=== PATIENT | male | born 1995 | race Caucasian/White ===

== ENCOUNTER 2019-05-17 22:32 | Emergency (ER) | payer SELFPAY ==
[2019-05-17 22:44] VITALS: TEMP 98.2
--- NOTE | 2019-05-17 23:04 | ED.PDOC ---
History of Present Illness - General Chief Complaint: Lower Extremity Injury Stated Complaint: C/O right mid foot pain from twisting ankle Time Seen by Provider: 05/17/19 22:47 Source: patient Exam Limitations: no limitations - History of Present Illness Initial Comments: the patient is a 23-year-old male that turned his right ankle today while playing with his relatives. He is having pain to the lateral aspect of the proximal foot. No deformity. There is mild swelling. No crepitus. He is neurovascularly intact. No pain over the distal fibula. No pain medially. No obvious joint instability. Mild pain over the fifth metatarsal. Timing/Duration: 4-6 hours Severity: moderate Improving Factors: immobilization Worsening Factors: movement Associated Symptoms: denies symptoms Allergies/Adverse Reactions: Allergies NO KNOWN ALLERGY Allergy (Verified 05/17/19 22:43) Home Medications: Ambulatory Orders NK 05/17/19 Review of Systems - Review of Systems Constitutional: States: no symptoms reported EENTM: States: no symptoms reported Respiratory: States: no symptoms reported Cardiology: States: no symptoms reported Gastrointestinal/Abdominal: States: no symptoms reported Genitourinary: States: no symptoms reported Musculoskeletal: States: see HPI Skin: States: no symptoms reported Neurological: States: no symptoms reported Endocrine: States: no symptoms reported All other Systems: No Change from Baseline Past Medical History (General) - Patient Medical History Hx Seizures: No Hx Stroke: No Hx Dementia: No Hx Asthma: No Hx of COPD: No Hx Cardiac Disorders: No Hx Congestive Heart Failure: No Hx Pacemaker: No Hx Hypertension: No Hx Thyroid Disease: No Hx Diabetes: No Hx Gastroesophageal Reflux: No Hx Renal Disease: No Hx Cancer: No Hx of HIV: No Hx Hepatitis C: No Hx MRSA: No Surgical History: no surgical history - Vaccination History Hx Tetanus, Diphtheria Vaccination: No Hx Influenza Vaccination: No - Social History Hx Tobacco Use: Yes Hx Alcohol Use: Yes - daily 6 pack Hx Substance Use Treatment: Yes Family Medical History - Family History Mother Living Status: Still Living Physical Exam - Physical Exam General Appearance: Alert, Comfortable, No apparent distress Eye Exam: bilateral normal Ears, Nose, Throat: hearing grossly normal Neck: full range of motion Respiratory: no respiratory distress, no accessory muscle use Cardiovascular/Chest: normal peripheral pulses, no edema Peripheral Pulses: dorsalis pedis,right: 2+, dorsalis pedis,left: 2+ Rectal Exam: deferred Extremity: normal range of motion, no pedal edema, normal capillary refill, swelling, other - see history of present illness 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 He can use an Carlito wrap to reduce discomfort if he wishes. [id number] Motrin can be used for discomfort. He is neurovascularly intact. He needs to use the ankle lightly for the next week or 2 while it is healing. ER warnings were given. [email or web address] [id number] - Results/Orders Results/Orders: x-ray of the foot shows no evidence of any fracture or obvious dislocation. No obvious fracture of the distal tibia or fibula in the x-rays. Departure - Departure Clinical Impression: Sprain of right ankle Qualifiers: Encounter type: initial encounter Involved ligament of ankle: anterior talofibular ligament Qualified Code(s): S93.491A - Sprain of other ligament of right ankle, initial encounter Disposition: Discharge to Home or Self Care Departure Forms: ED Discharge - Pt. Copy, Patient Portal Self Enrollment Diet: regular diet Activity: increase activity as tolerated Home Medications: Ambulatory Orders NK 05/17/19 Additional Instructions: the patient's 23-year-old male presenting with what appears to be mild right ankle sprain. He can use an Carlito wrap to reduce discomfort if he wishes. [id number] Motrin can be used for discomfort. He is neurovascularly intact. He needs to use the ankle lightly for the next week or 2 while it is healing. ER warnings were given.
[2019-05-17 23:15] VITALS: BP 142/84; O2SAT 97
--- NOTE | 2019-05-17 23:23 | RAD ---
EXAM: Foot,Right 3 Views CLINICAL INDICATION: 23-year-old male with RIGHT lateral foot pain. TECHNIQUE: Three views RIGHT foot were obtained in AP, lateral and oblique projections COMPARISON: None. FINDINGS: There is no fracture or dislocation. The joint spaces are preserved. No soft tissue abnormalities are seen. Incidentally noted medial bipartite sesamoid. IMPRESSION: No acute radiographic abnormality. Electronically signed by: Mechelle Burnett MD 05/17/2019 11:21 PM [facility]
== END 2019-05-17 23:11 | disposition home or self-care (01) ==
LOC: ER 22:32
DX: S93.491A Sprain of other ligament of right ankle, initial encounter (principal); Z87.891 Personal history of nicotine dependence; X50.9XXA Other and unspecified overexertion or strenuous movements or postures, initial encounter; Y92.830 Public park as the place of occurrence of the external cause